=== PATIENT | male | born 1945 | race Caucasian/White ===

== ENCOUNTER 2017-06-25 05:02 | Inpatient (IN) | payer OTHER ==
[~2017-06-25] VITALS: Ht 172.7 cm; Wt 69.4 kg
[2017-06-25] VITALS (70 sets, daily range): BP systolic 63–180; BP diastolic 38–102
[2017-06-25] MEDS ORDERED: FUROSEMIDE 40MG/4ML VIAL IV STA (05:09)
[2017-06-25] MEDS ORDERED: NITROGLYCERIN OINT 1GM/INCH UDPKT TD STA (05:09)
[2017-06-25] MEDS ORDERED: ONDANSETRON HCL 4MG/2ML VIAL IV STA (05:09)
[2017-06-25] MEDS ORDERED: ALLO300T2 PO (05:15)
[2017-06-25] MEDS ORDERED: ATEN100T PO (05:16)
[2017-06-25] MEDS ORDERED: LANS30CA55 PO (05:16)
[2017-06-25] MEDS ORDERED: GLIM4TAB2 PO (05:16)
[2017-06-25] MEDS ORDERED: METF10002 PO (05:17)
[2017-06-25] MEDS ORDERED: MIR25 PO (05:18)
[2017-06-25] MEDS ORDERED: SITA100T11 PO (05:18)
[2017-06-25] MEDS ORDERED: IMOD GT (05:19)
[2017-06-25] MEDS ORDERED: VALS1TAB74 PO (05:19)
[2017-06-25] MEDS ORDERED: LANTUSUD SUBCUT (05:21)
[2017-06-25] MEDS ORDERED: VITA400T9 PO (05:21)
[2017-06-25] MEDS ORDERED: SUCCINYLCHOLINE CHLORIDE 200MG/10ML VIAL IV ONE ×2 (05:45→06:00)
[2017-06-25] MEDS ORDERED: ETOMIDATE 2MG/ML 10ML VIAL IV ONE ×2 (05:45→06:00)
[2017-06-25] MEDS ORDERED: PROPOFOL 10MG/ML 100ML 100 ML IV ONE (05:45)
[2017-06-25 05:47] LABS: HEMOGLOBIN. 12.7 g/dL (14.0-18.0); MEAN CORPUSCULAR VOLUME 101.8 fL (80.0-94.0); MEAN PLATELET VOLUME 10.7 fl (7.4-10.4); PLATELET 225 x1000/uL (130-400); RED BLOOD CELL COUNT 3.74 mill/uL (4.7-6.1); RED CELL DISTRIBUTION WIDTH 16.3 % (11.6-14.6)
[2017-06-25 05:52] LABS: INR 1.2; PROTHROMBIN TIME 12.5 sec (9.4-11.6)
[2017-06-25 06:00] LABS: CARBON DIOXIDE 15 mEq/L (21-32); CHLORIDE 101 mEq/L (98-107); TROPONIN I 0.02 ng/mL (0.00-0.04)
[2017-06-25] MEDS ORDERED: PIPERACILLIN/TAZ 3.375G PREMIX 50 ML IV ONE (06:00)
[2017-06-25] MEDS ORDERED: SODIUM CHLORIDE 0.9% 1000ML BAG (SEPSIS BOLUS) IV ONE (06:00)
[2017-06-25] MEDS ORDERED: VANCOMYCIN 1 G PREMIX 200 ML IV ONE (06:00)
[2017-06-25 08:34] LABS: BG BASE EXCESS -16.4 mmol/L (-2.0-2.0); BG CARBOXYHEMOGLOBIN 0.3 % (0.5-1.5); BG DEOXYHEMOGLOBIN 5.6 % (0.0-5.0); BG HCO3 ACT 11.5 mmol/L (22.0-26.0); BG METHEMOGLOBIN 0.1 % (0.0-1.5); BG OXYGEN SATURATION 94.4 % (92.0-98.5); BG PCO2 34.3 mmHg (35.0-45.0); BG PH 7.142 (7.350-7.450); BG PO2 84.6 mmHg (75.0-100.0); BG SAMPLE SITE RIGHT BRACHIAL; BG TIDAL VOLUME(mL) 500 mL; BG TOTAL HEMOGLOBIN 11.4 g/dL (12.0-18.0); BG VENT MODE VENT - A/C; BG VENT RATE 14 set
[2017-06-25] MEDS ORDERED: MORPHINE SULFATE 10 MG/ML CPJ IV PRN (09:00)
[2017-06-25] MEDS ORDERED: CLONIDINE 0.1MG TABLET PO PRN (09:00)
[2017-06-25] MEDS ORDERED: NA PHOS,M-B/NA PHOS,DI-BA ENEMA 118ML PR PRN (09:00)
[2017-06-25] MEDS ORDERED: DIPHENHYDRAMINE 50MG/ML VIAL IV PRN (09:00)
[2017-06-25] MEDS ORDERED: IPRATROPIUM/ALBUTEROL 0.5-3(2.5)MG/3ML NEB INH PRN (09:00)
[2017-06-25] MEDS ORDERED: SODIUM CHLORIDE 0.9% 1,000 ML IV ONE (09:00)
[2017-06-25] MEDS ORDERED: GUAIFENESIN 200MG/10ML SUGAR FREE UDC PO PRN (09:00)
[2017-06-25] MEDS ORDERED: ACETAMINOPHEN 325MG TABLET PO PRN (09:00)
[2017-06-25] MEDS ORDERED: MAGNESIUM/ALUMINUM HYDROXIDE/SIMETHICONE 30ML UDC PO PRN (09:00)
[2017-06-25] MEDS ORDERED: ONDANSETRON HCL 4MG/2ML VIAL IV PRN (09:00)
[2017-06-25] MEDS ORDERED: DEXTROSE 50% WATER 50ML SYRINGE IV PRN (09:00)
[2017-06-25] MEDS ORDERED: DOCUSATE SODIUM 100MG CAPSULE PO PRN (09:00)
[2017-06-25] MEDS ORDERED: SODIUM BICARBONATE 8.4% 1 MEQ/ML 50ML SYR IV NR ×2 (09:15→14:30)
[2017-06-25] MEDS ORDERED: SODIUM CHLORIDE 0.9% 500 ML IV NR (09:30)
[2017-06-25] MEDS ORDERED: NOREPINEPHRINE 4 MG in DEXT 5% WATER 246 ML IV PRN (10:00)
[2017-06-25 10:48] LABS: GLUCOSE URINE NEGATIVE (NEGATIVE); KETONES URINE NEGATIVE (NEGATIVE); LEUKOCYTE ESTERASE URINE NEGATIVE (NEGATIVE); NITRITE URINE NEGATIVE (NEGATIVE); OCCULT BLOOD URINE 2+ (NEGATIVE); PH URINE 5.5 (4.5-8.0); PROTEIN URINE 2+ (NEGATIVE); SPECIFIC GRAVITY URINE 1.017 (1.005-1.030); UROBILINOGEN URINE 0.2 E.U./dL (0.2-1.0)
[2017-06-25 10:52] LABS: CLARITY URINE CLEAR (CLEAR); COLOR URINE YELLOW (YELLOW)
[2017-06-25] MEDS ORDERED: VANCOMYCIN 1 G PREMIX 200 ML IV NR (11:00)
[2017-06-25] MEDS ORDERED: LEVOFLOXACIN 750MG PREMIX 150 ML IV NR (11:00)
[2017-06-25 11:41] LABS: T4 FREE 1.29 ng/dL (0.76-1.46)
[2017-06-25] MEDS: IPRATROPIUM/ALBUTEROL 0.5-3(2.5)MG/3ML NEB HHN SCH ×2 (11:48→21:02)
[2017-06-25] MEDS: ENOXAPARIN 40MG/0.4ML SYR SUBCUT SCH (11:52)
[2017-06-25] MEDS: PANTOPRAZOLE SODIUM 40 MG/VIAL IV SCH (11:52)
[2017-06-25] MEDS: ASPIRIN 325MG EC TABLET PO SCH (11:53)
[2017-06-25] MEDS: ASCORBIC ACID 500 MG TABLET PO SCH ×2 (11:53→21:15)
[2017-06-25] MEDS: PROPOFOL 10MG/ML 100ML 100 ML IV PRN ×2 (11:54→21:17)
[2017-06-25] MEDS: PIPERACILLIN/TAZ 3.375G PREMIX 50 ML IV SCH ×3 (11:54→23:48)
[2017-06-25] MEDS: DEXT 5%/0.9% NACL 1,000 ML IV SCH ×2 (12:00→17:26)
[2017-06-25] MEDS ORDERED: IPRATROPIUM/ALBUTEROL 0.5-3(2.5)MG/3ML NEB HHN SCH (12:00)
[2017-06-25 12:12] LABS: *AMPHETAMINES SCREEN URINE NEGATIVE (NEGATIVE); *BARBITURATES SCREEN URINE NEGATIVE (NEGATIVE); *BENZODIAZEPINES SCREEN URINE NEGATIVE (NEGATIVE); *COCAINE SCREEN URINE NEGATIVE (NEGATIVE); CANNABINOID URINE SCREEN NEGATIVE (NEGATIVE); METHADONE URINE SCREEN NEGATIVE (NEGATIVE); OPIATES URINE SCREEN NEGATIVE (NEGATIVE); PHENCYCLIDINE URINE SCREEN NEGATIVE (NEGATIVE)
[2017-06-25 12:18] LABS: FOLIC ACID (FOLATE) SERUM 9.1 ng/mL (>5.38)
[2017-06-25] MEDS: ALBUMIN HUMAN 25GM/100ML (25%) IV SCH ×2 (12:37→20:10)
[2017-06-25 12:51] LABS: HEPATITIS B CORE AB IGM NEGATIVE
[2017-06-25 12:52] LABS: HEPATITIS A AB IGM NEGATIVE (NEGATIVE)
[2017-06-25] MEDS: INSULIN LISPRO 100 UNITS/ML SUBCUT SCH ×3 (12:58→21:50)
[2017-06-25] MEDS: BLOOD SUGAR DIAGNOSTIC STRIP TEST SCH ×3 (12:59→21:00)
[2017-06-25 13:17] LABS: HEPATITIS B SURFACE ANTIGEN NEGATIVE
[2017-06-25] MEDS ORDERED: NOREPINEPHRINE 8 MG in DEXT 5% WATER 242 ML IV PRN (14:00)
[2017-06-25 14:06] LABS: BG BASE EXCESS -13.7 mmol/L (-2.0-2.0); BG CARBOXYHEMOGLOBIN 0.3 % (0.5-1.5); BG DEOXYHEMOGLOBIN 7.7 % (0.0-5.0); BG FRACTION INSPIRED OXYGEN 55; BG HCO3 ACT 13.6 mmol/L (22.0-26.0); BG METHEMOGLOBIN 0.1 % (0.0-1.5); BG OXYGEN SATURATION 92.3 % (92.0-98.5); BG OXYHEMOGLOBIN 91.9 % (94.0-97.0); BG PCO2 36.6 mmHg (35.0-45.0); BG PH 7.188 (7.350-7.450); BG PO2 72.8 mmHg (75.0-100.0); BG SAMPLE SITE LEFT RADIAL; BG TIDAL VOLUME(mL) 500 mL; BG TOTAL HEMOGLOBIN 10.6 g/dL (12.0-18.0); BG VENT MODE VENT - A/C; BG VENT RATE 20 set
[2017-06-25] MEDS ORDERED: SODIUM CHLORIDE 0.9% 10ML VIAL ONE (14:40)
[2017-06-25 14:53] LABS: CREATINE KINASE MB FRACTION 7.9 ng/mL (0.5-3.6); TROPONIN I 0.22 ng/mL (0.00-0.04)
[2017-06-25] MEDS: PHENYLEPHRINE 40 MG in DEXT 5% WATER 246 ML IV PRN ×2 (17:02→23:47)
[2017-06-25 17:04] LABS: BG BASE EXCESS -9.2 mmol/L (-2.0-2.0); BG CARBOXYHEMOGLOBIN 0.3 % (0.5-1.5); BG DEOXYHEMOGLOBIN 4.8 % (0.0-5.0); BG HCO3 ACT 16.4 mmol/L (22.0-26.0); BG METHEMOGLOBIN 0.3 % (0.0-1.5); BG OXYGEN SATURATION 95.2 % (92.0-98.5); BG OXYHEMOGLOBIN 94.6 % (94.0-97.0); BG PCO2 34.5 mmHg (35.0-45.0); BG PH 7.295 (7.350-7.450); BG PO2 78.9 mmHg (75.0-100.0); BG SAMPLE SITE RIGHT BRACHIAL; BG TIDAL VOLUME(mL) 500 mL; BG TOTAL HEMOGLOBIN 11.3 g/dL (12.0-18.0); BG VENT MODE VENT - A/C; BG VENT RATE 24 set
[2017-06-25] MEDS: SODIUM BICARBONATE 150 MEQ in DEXTROSE 5% WATER 1,000 ML IV SCH (19:35)
[2017-06-25] MEDS: ALLOPURINOL 100 MG TABLET PO SCH (21:15)
[2017-06-25] MEDS: ACETAMINOPHEN 650MG/20.3ML UDC PO PRN (21:49)
[2017-06-25 23:19] LABS: CREATINE KINASE MB FRACTION 4.1 ng/mL (0.5-3.6); TROPONIN I 0.3 ng/mL (0.00-0.04)
[2017-06-26] VITALS (95 sets, daily range): BP systolic 61–141; BP diastolic 41–81
[2017-06-26] MEDS: IPRATROPIUM/ALBUTEROL 0.5-3(2.5)MG/3ML NEB HHN SCH ×5 (00:35→20:07)
[2017-06-26] MEDS: ALBUMIN HUMAN 25GM/100ML (25%) IV SCH (03:49)
[2017-06-26] MEDS: DEXT 5%/0.9% NACL 1,000 ML IV SCH ×2 (03:50→15:00)
[2017-06-26] MEDS: PIPERACILLIN/TAZ 3.375G PREMIX 50 ML IV SCH ×4 (05:57→23:44)
[2017-06-26 05:58] LABS: CARBON DIOXIDE 19 mEq/L (21-32); CHLORIDE 101 mEq/L (98-107)
[2017-06-26] MEDS: PHENYLEPHRINE 40 MG in DEXT 5% WATER 246 ML IV PRN ×4 (05:58→19:58)
[2017-06-26 06:05] LABS: TROPONIN I 0.11 ng/mL (0.00-0.04)
[2017-06-26] MEDS: SODIUM BICARBONATE 150 MEQ in DEXTROSE 5% WATER 1,000 ML IV SCH (06:37)
[2017-06-26 07:31] LABS: HEMATOCRIT. 26.3 % (42.0-52.0); MEAN CORPUSCULAR HEMOGLOBIN 34.1 pg (28.0-32.0); MEAN CORPUSCULAR VOLUME 99.9 fL (80.0-94.0); MEAN PLATELET VOLUME 10.3 fl (7.4-10.4); PLATELET 98 x1000/uL (130-400); RED BLOOD CELL COUNT 2.63 mill/uL (4.7-6.1); RED CELL DISTRIBUTION WIDTH 16.2 % (11.6-14.6)
[2017-06-26] MEDS: PROPOFOL 10MG/ML 100ML 100 ML IV PRN (07:44)
[2017-06-26] MEDS ORDERED: VANCOMYCIN 1 G PREMIX 200 ML IV SCH (08:00)
[2017-06-26] MEDS ORDERED: MAGNESIUM 4 G PREMIX 100 ML IV NR (08:00)
[2017-06-26 08:17] LABS: BG BASE EXCESS -5.1 mmol/L (-2.0-2.0); BG CARBOXYHEMOGLOBIN 0.3 % (0.5-1.5); BG DEOXYHEMOGLOBIN 1.6 % (0.0-5.0); BG FRACTION INSPIRED OXYGEN 65; BG HCO3 ACT 18.9 mmol/L (22.0-26.0); BG METHEMOGLOBIN 0.3 % (0.0-1.5); BG OXYGEN SATURATION 98.4 % (92.0-98.5); BG OXYHEMOGLOBIN 97.8 % (94.0-97.0); BG PCO2 31.2 mmHg (35.0-45.0); BG PO2 117.7 mmHg (75.0-100.0); BG SAMPLE SITE RIGHT BRACHIAL; BG TIDAL VOLUME(mL) 500 mL; BG TOTAL HEMOGLOBIN 9.5 g/dL (12.0-18.0); BG VENT MODE VENT - A/C; BG VENT RATE 24 set
[2017-06-26] MEDS: BLOOD SUGAR DIAGNOSTIC STRIP TEST SCH ×4 (08:27→20:55)
[2017-06-26] MEDS: ALLOPURINOL 100 MG TABLET PO SCH (08:34)
[2017-06-26] MEDS: PANTOPRAZOLE SODIUM 40 MG/VIAL IV SCH ×2 (08:34→20:54)
[2017-06-26] MEDS: ASCORBIC ACID 500 MG TABLET PO SCH ×2 (08:34→20:55)
[2017-06-26 08:46] LABS: PLATELET ESTIMATE SLIGHTLY DECREASED
[2017-06-26] MEDS: ENOXAPARIN 40MG/0.4ML SYR SUBCUT SCH ×2 (09:00→10:18)
[2017-06-26] MEDS: ASPIRIN 325MG EC TABLET PO SCH ×2 (09:00→10:18)
[2017-06-26] MEDS: INSULIN LISPRO 100 UNITS/ML SUBCUT SCH ×4 (09:23→20:55)
[2017-06-26] MEDS ORDERED: LACTULOSE 20G/30ML UDC PO NR (09:30)
[2017-06-26] MEDS ORDERED: DIATR MEGLU/DIATRIZOATE SOLN 30ML PO NR (09:30)
[2017-06-26] MEDS: FENTANYL CITRATE/PF 500 MCG in SODIUM CHLORIDE 0.9% 40 ML IV PRN ×2 (11:02→23:16)
[2017-06-26] MEDS ORDERED: PIPERACILLIN/TAZ 3.375G PREMIX 50 ML IV SCH (12:00)
[2017-06-26] MEDS ORDERED: POTASSIUM CHLORIDE 20MEQ TABLET SR PO NR (12:16)
[2017-06-26 12:23] LABS: BG BASE EXCESS -3.9 mmol/L (-2.0-2.0); BG CARBOXYHEMOGLOBIN 0.3 % (0.5-1.5); BG DEOXYHEMOGLOBIN 4.4 % (0.0-5.0); BG FRACTION INSPIRED OXYGEN 65; BG HCO3 ACT 19.8 mmol/L (22.0-26.0); BG METHEMOGLOBIN 0.1 % (0.0-1.5); BG OXYGEN SATURATION 95.6 % (92.0-98.5); BG OXYHEMOGLOBIN 95.2 % (94.0-97.0); BG PCO2 31.1 mmHg (35.0-45.0); BG PH 7.422 (7.350-7.450); BG PO2 73.5 mmHg (75.0-100.0); BG SAMPLE SITE RIGHT RADIAL; BG TIDAL VOLUME(mL) 500 mL; BG TOTAL HEMOGLOBIN 9.7 g/dL (12.0-18.0); BG VENT MODE VENT - A/C; BG VENT RATE 24 set
[2017-06-26] MEDS ORDERED: NOREPINEPHRINE 16 MG in DEXT 5% WATER 234 ML IV PRN (12:45)
[2017-06-26] MEDS ORDERED: POTASSIUM CHLORIDE 20MEQ/PACKET PO NR (14:00)
[2017-06-26 15:05] LABS: BG BASE EXCESS -4.9 mmol/L (-2.0-2.0); BG CARBOXYHEMOGLOBIN 0.3 % (0.5-1.5); BG DEOXYHEMOGLOBIN 6.9 % (0.0-5.0); BG FRACTION INSPIRED OXYGEN 65; BG HCO3 ACT 19.8 mmol/L (22.0-26.0); BG METHEMOGLOBIN 0.2 % (0.0-1.5); BG OXYGEN SATURATION 93.1 % (92.0-98.5); BG OXYHEMOGLOBIN 92.6 % (94.0-97.0); BG PCO2 35.5 mmHg (35.0-45.0); BG PH 7.365 (7.350-7.450); BG PO2 66.4 mmHg (75.0-100.0); BG SAMPLE SITE RIGHT BRACHIAL; BG TIDAL VOLUME(mL) 500 mL; BG TOTAL HEMOGLOBIN 11.7 g/dL (12.0-18.0); BG VENT MODE VENT - A/C; BG VENT RATE 24 set
[2017-06-26] MEDS ORDERED: MIDAZOLAM HCL 50 MG in DEXTROSE 5% WATER 40 ML IV PRN (20:00)
[2017-06-27] VITALS (99 sets, daily range): BP systolic 65–159; BP diastolic 41–88
[2017-06-27] MEDS ORDERED: VANCOMYCIN 1250MG in DEXTROSE 5% WATER 250ML IV SCH ×2
[2017-06-27] MEDS: PHENYLEPHRINE 40 MG in DEXT 5% WATER 246 ML IV PRN ×5 (00:02→16:45)
[2017-06-27] MEDS: DEXT 5%/0.9% NACL 1,000 ML IV SCH ×3 (00:25→13:11)
[2017-06-27] MEDS: VANCOMYCIN 1,250 MG in DEXT 5% WATER 250 ML IV SCH ×2 (00:25→17:02)
[2017-06-27] MEDS: LORAZEPAM 2MG/ML CPJ IV PRN (00:36)
[2017-06-27] MEDS: FENTANYL CITRATE/PF 500 MCG in SODIUM CHLORIDE 0.9% 40 ML IV PRN ×3 (00:59→19:33)
[2017-06-27] MEDS: IPRATROPIUM/ALBUTEROL 0.5-3(2.5)MG/3ML NEB HHN SCH ×5 (04:19→20:07)
[2017-06-27 04:59] LABS: HEMATOCRIT. 31.6 % (42.0-52.0); HEMOGLOBIN. 10.6 g/dL (14.0-18.0); MEAN CORPUSCULAR HEMOGLOBIN 33.2 pg (28.0-32.0); MEAN CORPUSCULAR VOLUME 98.7 fL (80.0-94.0); MEAN PLATELET VOLUME 10.9 fl (7.4-10.4); PLATELET 166 x1000/uL (130-400); RED BLOOD CELL COUNT 3.21 mill/uL (4.7-6.1); RED CELL DISTRIBUTION WIDTH 16.3 % (11.6-14.6)
[2017-06-27] MEDS: PIPERACILLIN/TAZ 3.375G PREMIX 50 ML IV SCH ×3 (05:02→17:01)
[2017-06-27 05:17] LABS: CARBON DIOXIDE 22 mEq/L (21-32); CHLORIDE 99 mEq/L (98-107); PHOSPHORUS 1.5 mg/dL (2.5-4.9)
[2017-06-27 08:21] LABS: BG BASE EXCESS -5.6 mmol/L (-2.0-2.0); BG CARBOXYHEMOGLOBIN 0.3 % (0.5-1.5); BG DEOXYHEMOGLOBIN 4.3 % (0.0-5.0); BG FRACTION INSPIRED OXYGEN 65; BG HCO3 ACT 19.2 mmol/L (22.0-26.0); BG METHEMOGLOBIN 0.2 % (0.0-1.5); BG OXYGEN SATURATION 95.7 % (92.0-98.5); BG OXYHEMOGLOBIN 95.2 % (94.0-97.0); BG PCO2 34.8 mmHg (35.0-45.0); BG PH 7.359 (7.350-7.450); BG PO2 78.5 mmHg (75.0-100.0); BG SAMPLE SITE LEFT BRACHIAL; BG TIDAL VOLUME(mL) 500 mL; BG TOTAL HEMOGLOBIN 11.2 g/dL (12.0-18.0); BG VENT MODE VENT - A/C; BG VENT RATE 24 set
[2017-06-27] MEDS: BLOOD SUGAR DIAGNOSTIC STRIP TEST SCH ×4 (08:41→20:50)
[2017-06-27] MEDS: ALLOPURINOL 100 MG TABLET PO SCH (08:50)
[2017-06-27] MEDS: PANTOPRAZOLE SODIUM 40 MG/VIAL IV SCH ×2 (08:50→20:12)
[2017-06-27] MEDS: ASCORBIC ACID 500 MG TABLET PO SCH ×2 (08:50→20:12)
[2017-06-27] MEDS ORDERED: LEVOFLOXACIN 500MG PREMIX 100 ML IV SCH (09:00)
[2017-06-27] MEDS: INSULIN LISPRO 100 UNITS/ML SUBCUT SCH ×4 (09:08→20:51)
[2017-06-27 09:50] LABS: NUCLEATED RED BLOOD CELLS 4 /100 WBC; PLATELET ESTIMATE NORMAL
[2017-06-27] MEDS ORDERED: POTASSIUM PHOS,M-BASIC-D-BASIC 15 MMOL in DEXT 5% WATER 245 ML IV SCH (11:00)
[2017-06-27] MEDS: ACETAMINOPHEN 650MG/20.3ML UDC PO PRN (13:29)
[2017-06-27] MEDS: INSULIN DETEMIR UD 100 UNITS/ML SYR SUBCUT SCH ×2 (16:44→22:58)
[2017-06-27] MEDS: PHENYLEPHRINE 80 MG in DEXT 5% WATER 492 ML IV PRN (20:43)
[2017-06-28] VITALS (109 sets, daily range): BP systolic 73–147; BP diastolic 42–119
[2017-06-28] MEDS: IPRATROPIUM/ALBUTEROL 0.5-3(2.5)MG/3ML NEB HHN SCH ×6 (00:18→19:57)
[2017-06-28] MEDS: PIPERACILLIN/TAZ 3.375G PREMIX 50 ML IV SCH ×5 (00:24→23:41)
[2017-06-28] MEDS: FENTANYL CITRATE/PF 500 MCG in SODIUM CHLORIDE 0.9% 40 ML IV PRN (01:00)
[2017-06-28] MEDS: PHENYLEPHRINE 80 MG in DEXT 5% WATER 492 ML IV PRN ×2 (04:58→14:19)
[2017-06-28] MEDS: BLOOD SUGAR DIAGNOSTIC STRIP TEST SCH ×4 (05:35→23:29)
[2017-06-28] MEDS: DEXT 5%/0.9% NACL 1,000 ML IV SCH ×2 (05:44→16:37)
[2017-06-28] MEDS: INSULIN LISPRO 100 UNITS/ML SUBCUT SCH ×4 (05:48→23:41)
[2017-06-28 07:41] LABS: BG BASE EXCESS -6.3 mmol/L (-2.0-2.0); BG CARBOXYHEMOGLOBIN 0.3 % (0.5-1.5); BG DEOXYHEMOGLOBIN 4.1 % (0.0-5.0); BG HCO3 ACT 19.1 mmol/L (22.0-26.0); BG METHEMOGLOBIN 0.3 % (0.0-1.5); BG OXYGEN SATURATION 95.9 % (92.0-98.5); BG OXYHEMOGLOBIN 95.3 % (94.0-97.0); BG PCO2 37.7 mmHg (35.0-45.0); BG PH 7.323 (7.350-7.450); BG PO2 82.3 mmHg (75.0-100.0); BG SAMPLE SITE RIGHT RADIAL; BG TIDAL VOLUME(mL) 500 mL; BG TOTAL HEMOGLOBIN 10.6 g/dL (12.0-18.0); BG VENT MODE VENT - A/C; BG VENT RATE 24 set
[2017-06-28] MEDS: ALLOPURINOL 100 MG TABLET PO SCH (08:11)
[2017-06-28] MEDS: ASCORBIC ACID 500 MG TABLET PO SCH ×2 (08:11→20:24)
[2017-06-28] MEDS: PANTOPRAZOLE SODIUM 40 MG/VIAL IV SCH ×2 (08:11→20:24)
[2017-06-28] MEDS ORDERED: AMMONIA INHALATION 1EA INH NR (08:45)
[2017-06-28] MEDS ORDERED: MINERAL OIL ENEMA 133ML PR NR (08:45)
[2017-06-28] MEDS ORDERED: LACTULOSE 20G/30ML UDC PO NR (08:45)
[2017-06-28 09:03] LABS: HEMATOCRIT 29.4 % (42.0-52.0); HEMOGLOBIN 9.9 g/dL (14.0-18.0); MEAN CORPUSCULAR HEMOGLOBIN 33.1 pg (28.0-32.0); MEAN CORPUSCULAR VOLUME 98.5 fL (80.0-94.0); PLATELET 138 x1000/uL (130-400); RED BLOOD CELL COUNT 2.98 mill/uL (4.7-6.1); RED CELL DISTRIBUTION WIDTH 16.5 % (11.6-14.6)
[2017-06-28 09:21] LABS: AMMONIA 45 uMol/L (<32)
[2017-06-28] MEDS: FENTANYL CITRATE/PF 1,000 MCG in SODIUM CHLORIDE 0.9% 80 ML IV PRN (09:31)
[2017-06-28 10:05] LABS: PHOSPHORUS 1.9 mg/dL (2.5-4.9)
[2017-06-28] MEDS: VANCOMYCIN 1,250 MG in DEXT 5% WATER 250 ML IV SCH (11:03)
[2017-06-28] MEDS ORDERED: SODIUM PHOS,M-BASIC-D-BASIC 15 MM in DEXT 5% WATER 245 ML IV ONE (12:00)
[2017-06-28] MEDS ORDERED: ZOSYN XX SCH (12:30)
[2017-06-28] MEDS ORDERED: VANCOMYCIN 1500MG in DEXTROSE 5% WATER 250ML IV SCH (13:00)
[2017-06-28] MEDS ORDERED: BISACODYL 10MG SUPP PR PRN (15:45)
[2017-06-28] MEDS ORDERED: SORBITOL 70% SOLN 30ML PO NR (16:30)
[2017-06-28] MEDS: INSULIN DETEMIR UD 100 UNITS/ML SYR SUBCUT SCH (21:23)
[2017-06-28] MEDS ORDERED: LACTULOSE 20G/30ML UDC PO SCH (22:00)
[2017-06-29] VITALS (93 sets, daily range): BP systolic 86–173; BP diastolic 41–106
[2017-06-29] MEDS: IPRATROPIUM/ALBUTEROL 0.5-3(2.5)MG/3ML NEB HHN SCH ×7 (01:03→22:30)
[2017-06-29] MEDS: PHENYLEPHRINE 80 MG in DEXT 5% WATER 492 ML IV PRN ×2 (01:40→13:47)
[2017-06-29] MEDS: DEXT 5%/0.9% NACL 1,000 ML IV SCH ×2 (02:34→13:40)
[2017-06-29] MEDS: PIPERACILLIN/TAZ 3.375G PREMIX 50 ML IV SCH (05:15)
[2017-06-29] MEDS: BLOOD SUGAR DIAGNOSTIC STRIP TEST SCH ×3 (05:26→18:44)
[2017-06-29] MEDS: INSULIN LISPRO 100 UNITS/ML SUBCUT SCH ×3 (05:36→18:49)
[2017-06-29 06:14] LABS: HEMATOCRIT. 29.9 % (42.0-52.0); MEAN CORPUSCULAR HEMOGLOBIN 32.9 pg (28.0-32.0); MEAN CORPUSCULAR VOLUME 98.3 fL (80.0-94.0); MEAN PLATELET VOLUME 10.5 fl (7.4-10.4); PLATELET 148 x1000/uL (130-400); RED BLOOD CELL COUNT 3.04 mill/uL (4.7-6.1); RED CELL DISTRIBUTION WIDTH 16.6 % (11.6-14.6)
[2017-06-29 06:26] LABS: AMMONIA 65 uMol/L (<32)
[2017-06-29 06:50] LABS: PHOSPHORUS 3.3 mg/dL (2.5-4.9)
[2017-06-29 08:01] LABS: BG BASE EXCESS -4.9 mmol/L (-2.0-2.0); BG CARBOXYHEMOGLOBIN 0.2 % (0.5-1.5); BG DEOXYHEMOGLOBIN 1.5 % (0.0-5.0); BG FRACTION INSPIRED OXYGEN 75; BG HCO3 ACT 19.3 mmol/L (22.0-26.0); BG METHEMOGLOBIN 0.3 % (0.0-1.5); BG OXYGEN SATURATION 98.5 % (92.0-98.5); BG PCO2 32.7 mmHg (35.0-45.0); BG PH 7.389 (7.350-7.450); BG PO2 134.2 mmHg (75.0-100.0); BG SAMPLE SITE RIGHT BRACHIAL; BG TIDAL VOLUME(mL) 500 mL; BG TOTAL HEMOGLOBIN 10.2 g/dL (12.0-18.0); BG VENT MODE VENT - A/C; BG VENT RATE 24 set
[2017-06-29 08:44] LABS: PLATELET ESTIMATE NORMAL
[2017-06-29] MEDS: ASCORBIC ACID 500 MG TABLET PO SCH ×2 (09:17→20:25)
[2017-06-29] MEDS: ALLOPURINOL 100 MG TABLET PO SCH (09:18)
[2017-06-29] MEDS: PANTOPRAZOLE SODIUM 40 MG/VIAL IV SCH ×2 (09:18→20:25)
[2017-06-29] MEDS ORDERED: VANCOMYCIN 1 G PREMIX 200 ML IV SCH (13:00)
[2017-06-29] MEDS: METOCLOPRAMIDE HCL 10MG/2ML VIAL IV SCH ×2 (13:43→18:47)
[2017-06-29] MEDS: RIFAXIMIN 550 MG TABLET PO SCH ×2 (13:44→20:25)
[2017-06-29] MEDS: METRONIDAZOLE 500MG TABLET PO SCH ×2 (14:45→20:25)
[2017-06-29] MEDS: LACTULOSE 20G/30ML UDC PO SCH ×2 (14:46→22:03)
[2017-06-29] MEDS: LORAZEPAM 2MG/ML CPJ IV PRN ×2 (16:54→23:06)
[2017-06-29] MEDS: CEFAZOLIN 2,000 MG in DEXT 5% WATER 100 ML IV SCH (16:54)
[2017-06-29] MEDS: INSULIN DETEMIR UD 100 UNITS/ML SYR SUBCUT SCH (22:04)
[2017-06-30] VITALS (101 sets, daily range): BP systolic 83–162; BP diastolic 48–114
[2017-06-30] MEDS: METOCLOPRAMIDE HCL 10MG/2ML VIAL IV SCH ×5 (00:02→23:29)
[2017-06-30] MEDS: INSULIN LISPRO 100 UNITS/ML SUBCUT SCH ×5 (00:02→23:30)
[2017-06-30] MEDS: BLOOD SUGAR DIAGNOSTIC STRIP TEST SCH ×5 (00:03→23:29)
[2017-06-30] MEDS: IPRATROPIUM/ALBUTEROL 0.5-3(2.5)MG/3ML NEB HHN PRN (01:38)
[2017-06-30] MEDS: CEFAZOLIN 2,000 MG in DEXT 5% WATER 100 ML IV SCH ×2 (03:14→16:49)
[2017-06-30] MEDS: IPRATROPIUM/ALBUTEROL 0.5-3(2.5)MG/3ML NEB HHN SCH ×2 (03:59→08:33)
[2017-06-30] MEDS: LACTULOSE 20G/30ML UDC PO SCH ×3 (05:23→21:20)
[2017-06-30 05:41] LABS: AMMONIA 40 uMol/L (<32)
[2017-06-30 06:11] LABS: HEMATOCRIT. 27.9 % (42.0-52.0); HEMOGLOBIN. 9.4 g/dL (14.0-18.0); MEAN CORPUSCULAR HEMOGLOBIN 33.2 pg (28.0-32.0); MEAN CORPUSCULAR VOLUME 98.4 fL (80.0-94.0); MEAN PLATELET VOLUME 10.7 fl (7.4-10.4); PLATELET 125 x1000/uL (130-400); RED BLOOD CELL COUNT 2.83 mill/uL (4.7-6.1); RED CELL DISTRIBUTION WIDTH 16.5 % (11.6-14.6)
[2017-06-30 06:15] LABS: INR 1.2; PARTIAL THROMBOPLASTIN TIME 28.1 sec (23.4-31.0)
[2017-06-30] MEDS: PHENYLEPHRINE 80 MG in DEXT 5% WATER 492 ML IV PRN ×2 (06:15→19:25)
[2017-06-30] MEDS: FENTANYL CITRATE/PF 1,000 MCG in SODIUM CHLORIDE 0.9% 80 ML IV PRN ×3 (06:41→20:59)
[2017-06-30 07:00] LABS: CARBON DIOXIDE 19 mEq/L (21-32); CHLORIDE 104 mEq/L (98-107); PHOSPHORUS 2.7 mg/dL (2.5-4.9)
[2017-06-30 07:38] LABS: BG BASE EXCESS -10.3 mmol/L (-2.0-2.0); BG DEOXYHEMOGLOBIN 2.3 % (0.0-5.0); BG HCO3 ACT 13.7 mmol/L (22.0-26.0); BG METHEMOGLOBIN 0.2 % (0.0-1.5); BG OXYGEN SATURATION 97.7 % (92.0-98.5); BG OXYHEMOGLOBIN 97.5 % (94.0-97.0); BG PCO2 25.8 mmHg (35.0-45.0); BG PH 7.344 (7.350-7.450); BG SAMPLE SITE RIGHT BRACHIAL; BG TIDAL VOLUME(mL) 500 mL; BG TOTAL HEMOGLOBIN 12.4 g/dL (12.0-18.0); BG VENT MODE VENT - A/C; BG VENT RATE 20 set
[2017-06-30] MEDS ORDERED: LORAZEPAM 2MG/ML CPJ IV NR (08:37)
[2017-06-30 09:09] LABS: PLATELET ESTIMATE NORMAL
[2017-06-30] MEDS: MIDAZOLAM HCL 50 MG in DEXTROSE 5% WATER 40 ML IV PRN ×2 (09:13→16:56)
[2017-06-30] MEDS: ALLOPURINOL 100 MG TABLET PO SCH (10:07)
[2017-06-30] MEDS: RIFAXIMIN 550 MG TABLET PO SCH ×2 (10:07→21:20)
[2017-06-30] MEDS: METRONIDAZOLE 500MG TABLET PO SCH ×2 (10:07→21:20)
[2017-06-30] MEDS: PANTOPRAZOLE SODIUM 40 MG/VIAL IV SCH ×2 (10:07→21:20)
[2017-06-30] MEDS: ASCORBIC ACID 500 MG TABLET PO SCH ×2 (10:07→21:20)
[2017-06-30] MEDS: DEXT 5%/0.9% NACL 1,000 ML IV SCH (10:17)
[2017-06-30] MEDS ORDERED: SODIUM CHLORIDE 0.9% 500 ML IV NR (11:15)
[2017-06-30] MEDS: IPRATROPIUM BROMIDE (0.02%) 0.5MG/2.5ML NEB HHN SCH ×4 (12:13→23:50)
[2017-06-30] MEDS ORDERED: ALBUMIN HUMAN 25GM/100ML (25%) IV NR (14:15)
[2017-06-30] MEDS ORDERED: MIDODRINE HCL 5MG TABLET NG SCH (15:45)
[2017-06-30] MEDS: CITRIC ACID/SODIUM CITRATE SOLN 30ML UDC NG SCH ×2 (16:25→17:43)
[2017-06-30] MEDS: INSULIN DETEMIR UD 100 UNITS/ML SYR SUBCUT SCH (21:30)
[2017-07-01] VITALS (91 sets, daily range): BP systolic 80–140; BP diastolic 46–72
[2017-07-01] MEDS: MIDODRINE HCL 5MG TABLET NG SCH ×3 (01:07→16:17)
[2017-07-01] MEDS: MIDAZOLAM HCL 50 MG in DEXTROSE 5% WATER 40 ML IV PRN (02:27)
[2017-07-01] MEDS: CEFAZOLIN 2,000 MG in DEXT 5% WATER 100 ML IV SCH ×2 (03:04→16:16)
[2017-07-01] MEDS: IPRATROPIUM BROMIDE (0.02%) 0.5MG/2.5ML NEB HHN SCH ×5 (04:27→20:30)
[2017-07-01] MEDS: LACTULOSE 20G/30ML UDC PO SCH ×3 (05:12→21:38)
[2017-07-01] MEDS: METOCLOPRAMIDE HCL 10MG/2ML VIAL IV SCH ×3 (05:12→18:14)
[2017-07-01] MEDS: BLOOD SUGAR DIAGNOSTIC STRIP TEST SCH ×3 (05:12→18:13)
[2017-07-01] MEDS: PHENYLEPHRINE 80 MG in DEXT 5% WATER 492 ML IV PRN ×2 (05:13→14:57)
[2017-07-01] MEDS: INSULIN LISPRO 100 UNITS/ML SUBCUT SCH ×3 (05:13→18:16)
[2017-07-01] MEDS: FENTANYL CITRATE/PF 1,000 MCG in SODIUM CHLORIDE 0.9% 80 ML IV PRN (05:36)
[2017-07-01 06:31] LABS: HEMATOCRIT. 29.9 % (42.0-52.0); HEMOGLOBIN. 9.8 g/dL (14.0-18.0); MEAN CORPUSCULAR VOLUME 100.2 fL (80.0-94.0); MEAN PLATELET VOLUME 10.1 fl (7.4-10.4); PLATELET 124 x1000/uL (130-400); RED BLOOD CELL COUNT 2.99 mill/uL (4.7-6.1); RED CELL DISTRIBUTION WIDTH 16.6 % (11.6-14.6)
[2017-07-01 07:06] LABS: CARBON DIOXIDE 21 mEq/L (21-32); CHLORIDE 107 mEq/L (98-107)
[2017-07-01] MEDS ORDERED: FUROSEMIDE 40MG/4ML VIAL IVP SCH (08:30)
[2017-07-01] MEDS ORDERED: ALBUMIN HUMAN 25GM/100ML (25%) IV SCH (08:30)
[2017-07-01] MEDS: METRONIDAZOLE 500MG TABLET PO SCH ×2 (08:52→20:05)
[2017-07-01] MEDS: CITRIC ACID/SODIUM CITRATE SOLN 30ML UDC NG SCH ×3 (08:52→16:16)
[2017-07-01] MEDS: ALLOPURINOL 100 MG TABLET PO SCH (08:52)
[2017-07-01] MEDS: RIFAXIMIN 550 MG TABLET PO SCH ×2 (08:52→20:05)
[2017-07-01] MEDS: PANTOPRAZOLE SODIUM 40 MG/VIAL IV SCH ×2 (08:52→20:05)
[2017-07-01] MEDS: ASCORBIC ACID 500 MG TABLET PO SCH ×2 (08:52→20:05)
[2017-07-01] MEDS ORDERED: KCL 20MEQ/100ML PREMIX 100 ML IV SCH (09:30)
[2017-07-01 09:54] LABS: PLATELET ESTIMATE SLIGHTLY DECREASED
[2017-07-01] MEDS ORDERED: POTASSIUM PHOS,M-BASIC-D-BASIC 30 MMOL in SODIUM CHLORIDE 0.9% 500 ML IV SCH (10:00)
[2017-07-01 10:22] LABS: BG BASE EXCESS -4.9 mmol/L (-2.0-2.0); BG CARBOXYHEMOGLOBIN 0.3 % (0.5-1.5); BG DEOXYHEMOGLOBIN 3.9 % (0.0-5.0); BG FRACTION INSPIRED OXYGEN 60; BG HCO3 ACT 19.3 mmol/L (22.0-26.0); BG METHEMOGLOBIN 0.2 % (0.0-1.5); BG OXYGEN SATURATION 96.1 % (92.0-98.5); BG OXYHEMOGLOBIN 95.6 % (94.0-97.0); BG PCO2 32.1 mmHg (35.0-45.0); BG PH 7.396 (7.350-7.450); BG PO2 84.8 mmHg (75.0-100.0); BG SAMPLE SITE RIGHT RADIAL; BG TIDAL VOLUME(mL) 500 mL; BG TOTAL HEMOGLOBIN 9.8 g/dL (12.0-18.0); BG VENT MODE VENT - A/C; BG VENT RATE 20 set
[2017-07-01 13:00] LABS: AMMONIA 49 uMol/L (<32)
[2017-07-01 15:06] LABS: QFT MITOGEN VALUE 0.05 IU/mL (.); QFT TB AG VALUE 0.05 IU/mL (.); QFT TB GOLD Indeterminate (Negative)
[2017-07-01] MEDS ORDERED: LACTULOSE 20G/30ML UDC PO SCH (21:00)
[2017-07-01] MEDS: INSULIN DETEMIR UD 100 UNITS/ML SYR SUBCUT SCH (21:39)
[2017-07-02] VITALS (86 sets, daily range): BP systolic 88–126; BP diastolic 47–68
[2017-07-02] MEDS: IPRATROPIUM BROMIDE (0.02%) 0.5MG/2.5ML NEB HHN SCH ×6 (00:08→21:03)
[2017-07-02] MEDS: METOCLOPRAMIDE HCL 10MG/2ML VIAL IV SCH ×4 (00:10→17:05)
[2017-07-02] MEDS: MIDODRINE HCL 5MG TABLET NG SCH ×3 (00:21→17:06)
[2017-07-02] MEDS: INSULIN LISPRO 100 UNITS/ML SUBCUT SCH ×4 (00:21→17:07)
[2017-07-02] MEDS: CEFAZOLIN 2,000 MG in DEXT 5% WATER 100 ML IV SCH ×2 (03:49→16:14)
[2017-07-02] MEDS: BLOOD SUGAR DIAGNOSTIC STRIP TEST SCH ×4 (06:00→16:58)
[2017-07-02] MEDS: LACTULOSE 20G/30ML UDC PO SCH ×4 (06:14→20:10)
[2017-07-02 06:26] LABS: AMMONIA 38 uMol/L (<32)
[2017-07-02 06:39] LABS: CARBON DIOXIDE 21 mEq/L (21-32); CHLORIDE 108 mEq/L (98-107); PHOSPHORUS 2.3 mg/dL (2.5-4.9)
[2017-07-02] MEDS: PHENYLEPHRINE 80 MG in DEXT 5% WATER 492 ML IV PRN (06:50)
[2017-07-02 08:07] LABS: BG BASE EXCESS -2.8 mmol/L (-2.0-2.0); BG CARBOXYHEMOGLOBIN 0.3 % (0.5-1.5); BG DEOXYHEMOGLOBIN 3.2 % (0.0-5.0); BG FRACTION INSPIRED OXYGEN 55; BG METHEMOGLOBIN 0.4 % (0.0-1.5); BG OXYGEN SATURATION 96.8 % (92.0-98.5); BG OXYHEMOGLOBIN 96.1 % (94.0-97.0); BG PCO2 37.9 mmHg (35.0-45.0); BG PH 7.381 (7.350-7.450); BG PO2 90.8 mmHg (75.0-100.0); BG SAMPLE SITE RIGHT RADIAL; BG TIDAL VOLUME(mL) 500 mL; BG TOTAL HEMOGLOBIN 9.4 g/dL (12.0-18.0); BG VENT MODE VENT - A/C; BG VENT RATE 16 set
[2017-07-02 08:13] LABS: HEMOGLOBIN. 8.8 g/dL (14.0-18.0); MEAN CORPUSCULAR HEMOGLOBIN 32.4 pg (28.0-32.0); MEAN CORPUSCULAR VOLUME 99.4 fL (80.0-94.0); MEAN PLATELET VOLUME 10.5 fl (7.4-10.4); PLATELET 130 x1000/uL (130-400); RED BLOOD CELL COUNT 2.72 mill/uL (4.7-6.1); RED CELL DISTRIBUTION WIDTH 16.3 % (11.6-14.6)
[2017-07-02] MEDS: PANTOPRAZOLE SODIUM 40 MG/VIAL IV SCH ×2 (09:43→20:08)
[2017-07-02] MEDS: CITRIC ACID/SODIUM CITRATE SOLN 30ML UDC NG SCH ×3 (09:43→17:05)
[2017-07-02] MEDS: ALLOPURINOL 100 MG TABLET PO SCH (09:43)
[2017-07-02] MEDS: ASCORBIC ACID 500 MG TABLET PO SCH ×2 (09:43→20:09)
[2017-07-02 09:44] LABS: PLATELET ESTIMATE NORMAL
[2017-07-02] MEDS: METRONIDAZOLE 500MG TABLET PO SCH ×2 (09:44→20:09)
[2017-07-02] MEDS ORDERED: POTASSIUM PHOS,M-BASIC-D-BASIC 15 MMOL in DEXT 5% WATER 245 ML IV SCH (10:00)
[2017-07-02] MEDS ORDERED: FUROSEMIDE 40MG/4ML VIAL IVP SCH (10:00)
[2017-07-02] MEDS: HEPARIN 5000 UNITS/ML VIAL SUBCUT SCH ×2 (12:39→21:18)
[2017-07-02] MEDS: RIFAXIMIN 550 MG TABLET PO SCH (20:09)
[2017-07-02] MEDS: INSULIN DETEMIR UD 100 UNITS/ML SYR SUBCUT SCH (21:19)
[2017-07-03] VITALS (64 sets, daily range): BP systolic 85–159; BP diastolic 48–88
[2017-07-03] MEDS: MIDODRINE HCL 5MG TABLET NG SCH ×3 (00:01→16:26)
[2017-07-03] MEDS: IPRATROPIUM BROMIDE (0.02%) 0.5MG/2.5ML NEB HHN SCH ×3 (00:36→07:45)
[2017-07-03] MEDS: INSULIN LISPRO 100 UNITS/ML SUBCUT SCH ×5 (00:48→23:29)
[2017-07-03] MEDS: LACTULOSE 20G/30ML UDC PO SCH ×7 (03:33→23:27)
[2017-07-03] MEDS: CEFAZOLIN 2,000 MG in DEXT 5% WATER 100 ML IV SCH ×3 (03:33→23:28)
[2017-07-03] MEDS: BLOOD SUGAR DIAGNOSTIC STRIP TEST SCH ×5 (06:00→23:19)
[2017-07-03 06:13] LABS: HEMATOCRIT. 26.6 % (42.0-52.0); HEMOGLOBIN. 8.7 g/dL (14.0-18.0); MEAN CORPUSCULAR HEMOGLOBIN 33.3 pg (28.0-32.0); MEAN PLATELET VOLUME 11.4 fl (7.4-10.4); PLATELET 145 x1000/uL (130-400); RED BLOOD CELL COUNT 2.63 mill/uL (4.7-6.1); RED CELL DISTRIBUTION WIDTH 16.7 % (11.6-14.6)
[2017-07-03 06:24] LABS: AMMONIA 60 uMol/L (<32)
[2017-07-03] MEDS: METOCLOPRAMIDE HCL 10MG/2ML VIAL IV SCH ×5 (06:32→23:27)
[2017-07-03 07:04] LABS: PHOSPHORUS 1.8 mg/dL (2.5-4.9)
[2017-07-03] MEDS: CITRIC ACID/SODIUM CITRATE SOLN 30ML UDC NG SCH (08:18)
[2017-07-03] MEDS: RIFAXIMIN 550 MG TABLET PO SCH ×2 (08:19→20:26)
[2017-07-03] MEDS: HEPARIN 5000 UNITS/ML VIAL SUBCUT SCH ×2 (08:19→20:26)
[2017-07-03] MEDS: ASCORBIC ACID 500 MG TABLET PO SCH ×2 (08:20→20:26)
[2017-07-03] MEDS: PANTOPRAZOLE SODIUM 40 MG/VIAL IV SCH ×2 (08:20→20:26)
[2017-07-03] MEDS: ALLOPURINOL 100 MG TABLET PO SCH (08:20)
[2017-07-03] MEDS: METRONIDAZOLE 500MG TABLET PO SCH ×2 (08:20→20:26)
[2017-07-03 08:38] LABS: BG BASE EXCESS -0.7 mmol/L (-2.0-2.0); BG CARBOXYHEMOGLOBIN 0.2 % (0.5-1.5); BG DEOXYHEMOGLOBIN 3.4 % (0.0-5.0); BG FRACTION INSPIRED OXYGEN 45; BG HCO3 ACT 23.1 mmol/L (22.0-26.0); BG METHEMOGLOBIN 0.2 % (0.0-1.5); BG OXYGEN SATURATION 96.6 % (92.0-98.5); BG OXYHEMOGLOBIN 96.2 % (94.0-97.0); BG PCO2 34.4 mmHg (35.0-45.0); BG PH 7.444 (7.350-7.450); BG PO2 91.4 mmHg (75.0-100.0); BG SAMPLE SITE RIGHT RADIAL; BG TIDAL VOLUME(mL) 500 mL; BG TOTAL HEMOGLOBIN 10.2 g/dL (12.0-18.0); BG VENT MODE VENT - A/C; BG VENT RATE 12 set
[2017-07-03] MEDS ORDERED: ALBUMIN HUMAN 25GM/100ML (25%) IV NR (08:55)
[2017-07-03] MEDS ORDERED: FUROSEMIDE 40MG/4ML VIAL IVP NR (08:55)
[2017-07-03] MEDS ORDERED: POTASSIUM PHOS,M-BASIC-D-BASIC 20 MMOL in DEXT 5% WATER 243.3333 ML IV ONE (09:15)
[2017-07-03] MEDS ORDERED: POTASSIUM PHOS,M-BASIC-D-BASIC 15 MMOL in DEXT 5% WATER 245 ML IV NR (11:00)
[2017-07-03 11:06] LABS: PLATELET ESTIMATE NORMAL
[2017-07-03] MEDS: ACETAMINOPHEN 650MG/20.3ML UDC PO PRN (12:10)
[2017-07-03] MEDS: ACETYLCYSTEINE 200MG/ML 20% VIAL 4ML INH SCH ×2 (14:46→20:43)
[2017-07-03] MEDS: IPRATROPIUM/ALBUTEROL 0.5-3(2.5)MG/3ML NEB HHN SCH ×2 (14:46→20:36)
[2017-07-03] MEDS: INSULIN DETEMIR UD 100 UNITS/ML SYR SUBCUT SCH (22:10)
[2017-07-04] VITALS (49 sets, daily range): BP systolic 102–167; BP diastolic 61–93
[2017-07-04] MEDS: MORPHINE SULFATE 2 MG/ML CPJ (NOT FOR IM USE) IV PRN (00:03)
[2017-07-04] MEDS: MIDODRINE HCL 5MG TABLET NG SCH ×2 (00:58→09:35)
[2017-07-04] MEDS: ACETAMINOPHEN 650MG/20.3ML UDC PO PRN ×3 (01:22→18:16)
[2017-07-04] MEDS: LACTULOSE 20G/30ML UDC PO SCH ×4 (04:00→22:18)
[2017-07-04] MEDS: ACETYLCYSTEINE 200MG/ML 20% VIAL 4ML INH SCH ×3 (05:27→15:41)
[2017-07-04] MEDS: IPRATROPIUM/ALBUTEROL 0.5-3(2.5)MG/3ML NEB HHN SCH ×2 (05:28→08:35)
[2017-07-04 05:32] LABS: HEMATOCRIT. 26.1 % (42.0-52.0); HEMOGLOBIN. 8.5 g/dL (14.0-18.0); MEAN CORPUSCULAR HEMOGLOBIN 33.1 pg (28.0-32.0); MEAN PLATELET VOLUME 10.7 fl (7.4-10.4); PLATELET 169 x1000/uL (130-400); RED BLOOD CELL COUNT 2.58 mill/uL (4.7-6.1); RED CELL DISTRIBUTION WIDTH 17.1 % (11.6-14.6)
[2017-07-04] MEDS: BLOOD SUGAR DIAGNOSTIC STRIP TEST SCH ×3 (05:32→18:06)
[2017-07-04] MEDS: METOCLOPRAMIDE HCL 10MG/2ML VIAL IV SCH ×3 (05:40→18:16)
[2017-07-04] MEDS: INSULIN LISPRO 100 UNITS/ML SUBCUT SCH ×3 (05:42→18:17)
[2017-07-04 05:58] LABS: PHOSPHORUS 2.8 mg/dL (2.5-4.9)
[2017-07-04 06:02] LABS: AMMONIA 29 uMol/L (<32)
[2017-07-04 08:40] LABS: BG BASE EXCESS -1.3 mmol/L (-2.0-2.0); BG CARBOXYHEMOGLOBIN 0.3 % (0.5-1.5); BG DEOXYHEMOGLOBIN 3.9 % (0.0-5.0); BG FRACTION INSPIRED OXYGEN 35; BG HCO3 ACT 22.5 mmol/L (22.0-26.0); BG METHEMOGLOBIN 0.3 % (0.0-1.5); BG OXYGEN SATURATION 96.1 % (92.0-98.5); BG OXYHEMOGLOBIN 95.5 % (94.0-97.0); BG PCO2 33.9 mmHg (35.0-45.0); BG PO2 85.6 mmHg (75.0-100.0); BG SAMPLE SITE RIGHT RADIAL; BG TIDAL VOLUME(mL) 500 mL; BG TOTAL HEMOGLOBIN 9.4 g/dL (12.0-18.0); BG VENT MODE VENT - A/C; BG VENT RATE 12 set
[2017-07-04] MEDS: PANTOPRAZOLE SODIUM 40 MG/VIAL IV SCH ×2 (09:33→20:43)
[2017-07-04] MEDS: CEFAZOLIN 2,000 MG in DEXT 5% WATER 100 ML IV SCH ×2 (09:33→16:45)
[2017-07-04] MEDS: HEPARIN 5000 UNITS/ML VIAL SUBCUT SCH ×2 (09:34→20:43)
[2017-07-04] MEDS: ALLOPURINOL 100 MG TABLET PO SCH (09:34)
[2017-07-04] MEDS: ASCORBIC ACID 500 MG TABLET PO SCH ×2 (09:34→20:43)
[2017-07-04] MEDS: RIFAXIMIN 550 MG TABLET PO SCH ×2 (09:34→20:43)
[2017-07-04] MEDS: METRONIDAZOLE 500MG TABLET PO SCH ×2 (09:35→20:43)
[2017-07-04] MEDS: IPRATROPIUM/ALBUTEROL 0.5-3(2.5)MG/3ML NEB HHN PRN ×2 (12:31→15:36)
[2017-07-04] MEDS: FUROSEMIDE 40MG/4ML VIAL IVP SCH (13:33)
[2017-07-04] MEDS ORDERED: MIDODRINE HCL 5MG TABLET NG SCH (21:00)
[2017-07-04 22:15] LABS: PLATELET ESTIMATE NORMAL
[2017-07-04] MEDS: INSULIN DETEMIR UD 100 UNITS/ML SYR SUBCUT SCH (22:21)
[2017-07-05] VITALS (44 sets, daily range): BP systolic 61–154; BP diastolic 44–85
[2017-07-05] MEDS: BLOOD SUGAR DIAGNOSTIC STRIP TEST SCH ×5 (00:25→23:18)
[2017-07-05] MEDS: ACETYLCYSTEINE 200MG/ML 20% VIAL 4ML INH SCH ×2 (00:32→08:31)
[2017-07-05] MEDS: IPRATROPIUM/ALBUTEROL 0.5-3(2.5)MG/3ML NEB HHN SCH ×2 (00:32→08:31)
[2017-07-05] MEDS: CEFAZOLIN 2,000 MG in DEXT 5% WATER 100 ML IV SCH ×4 (00:35→23:31)
[2017-07-05] MEDS: INSULIN LISPRO 100 UNITS/ML SUBCUT SCH ×5 (00:37→23:32)
[2017-07-05] MEDS: METOCLOPRAMIDE HCL 10MG/2ML VIAL IV SCH ×5 (00:38→23:32)
[2017-07-05 05:20] LABS: HEMATOCRIT. 24.5 % (42.0-52.0); HEMOGLOBIN. 8.1 g/dL (14.0-18.0); MEAN CORPUSCULAR HEMOGLOBIN 33.3 pg (28.0-32.0); MEAN CORPUSCULAR VOLUME 101.3 fL (80.0-94.0); MEAN PLATELET VOLUME 10.7 fl (7.4-10.4); PLATELET 168 x1000/uL (130-400); RED BLOOD CELL COUNT 2.42 mill/uL (4.7-6.1); RED CELL DISTRIBUTION WIDTH 17.1 % (11.6-14.6)
[2017-07-05 05:39] LABS: CARBON DIOXIDE 25 mEq/L (21-32); CHLORIDE 115 mEq/L (98-107); PHOSPHORUS 1.6 mg/dL (2.5-4.9)
[2017-07-05 05:42] LABS: AMMONIA 32 uMol/L (<32)
[2017-07-05] MEDS: LACTULOSE 20G/30ML UDC PO SCH ×3 (05:46→22:23)
[2017-07-05] MEDS: ACETAMINOPHEN 650MG/20.3ML UDC PO PRN ×2 (06:32→14:02)
[2017-07-05 08:12] LABS: BG BASE EXCESS -2.1 mmol/L (-2.0-2.0); BG CARBOXYHEMOGLOBIN 0.3 % (0.5-1.5); BG DEOXYHEMOGLOBIN 4.8 % (0.0-5.0); BG FRACTION INSPIRED OXYGEN 35; BG HCO3 ACT 20.6 mmol/L (22.0-26.0); BG METHEMOGLOBIN 0.4 % (0.0-1.5); BG OXYGEN SATURATION 95.2 % (92.0-98.5); BG OXYHEMOGLOBIN 94.5 % (94.0-97.0); BG PCO2 28.1 mmHg (35.0-45.0); BG PH 7.482 (7.350-7.450); BG PO2 74.9 mmHg (75.0-100.0); BG SAMPLE SITE RIGHT BRACHIAL; BG TIDAL VOLUME(mL) 500 mL; BG TOTAL HEMOGLOBIN 9.7 g/dL (12.0-18.0); BG VENT MODE VENT - A/C; BG VENT RATE 12 set
[2017-07-05] MEDS: ALLOPURINOL 100 MG TABLET PO SCH (08:47)
[2017-07-05] MEDS: ASCORBIC ACID 500 MG TABLET PO SCH ×2 (08:47→20:36)
[2017-07-05] MEDS: FUROSEMIDE 40MG/4ML VIAL IVP SCH (08:47)
[2017-07-05] MEDS: PANTOPRAZOLE SODIUM 40 MG/VIAL IV SCH ×2 (08:47→20:37)
[2017-07-05] MEDS: METRONIDAZOLE 500MG TABLET PO SCH ×2 (08:47→20:36)
[2017-07-05] MEDS: RIFAXIMIN 550 MG TABLET PO SCH ×2 (08:47→20:47)
[2017-07-05 10:54] LABS: PLATELET ESTIMATE NORMAL
[2017-07-05] MEDS ORDERED: POTASSIUM PHOS,M-BASIC-D-BASIC 30 MMOL in DEXT 5% WATER 500 ML IV NR (11:00)
[2017-07-05] MEDS: ENOXAPARIN 40MG/0.4ML SYR SUBCUT SCH (11:38)
[2017-07-05] MEDS: INSULIN DETEMIR UD 100 UNITS/ML SYR SUBCUT SCH ×2 (12:25→22:24)
[2017-07-05] MEDS: IPRATROPIUM/ALBUTEROL 0.5-3(2.5)MG/3ML NEB HHN PRN ×2 (12:49→16:29)
[2017-07-05] MEDS: MORPHINE SULFATE 2 MG/ML CPJ (NOT FOR IM USE) IV PRN (20:35)
[2017-07-06] VITALS (44 sets, daily range): BP systolic 90–154; BP diastolic 46–88
[2017-07-06] MEDS: IPRATROPIUM/ALBUTEROL 0.5-3(2.5)MG/3ML NEB HHN SCH ×3 (00:39→15:53)
[2017-07-06] MEDS: ACETYLCYSTEINE 200MG/ML 20% VIAL 4ML INH SCH ×3 (00:40→15:53)
[2017-07-06] MEDS: METOCLOPRAMIDE HCL 10MG/2ML VIAL IV SCH ×4 (05:41→23:55)
[2017-07-06] MEDS: LACTULOSE 20G/30ML UDC PO SCH ×2 (05:42→17:19)
[2017-07-06] MEDS: INSULIN LISPRO 100 UNITS/ML SUBCUT SCH ×4 (05:51→23:56)
[2017-07-06 05:54] LABS: HEMATOCRIT. 26.6 % (42.0-52.0); HEMOGLOBIN. 8.6 g/dL (14.0-18.0); MEAN CORPUSCULAR HEMOGLOBIN 32.7 pg (28.0-32.0); MEAN CORPUSCULAR VOLUME 101.3 fL (80.0-94.0); MEAN PLATELET VOLUME 11.1 fl (7.4-10.4); PLATELET 201 x1000/uL (130-400); RED BLOOD CELL COUNT 2.62 mill/uL (4.7-6.1); RED CELL DISTRIBUTION WIDTH 18.3 % (11.6-14.6)
[2017-07-06] MEDS: BLOOD SUGAR DIAGNOSTIC STRIP TEST SCH ×4 (06:23→23:56)
[2017-07-06 06:39] LABS: CHLORIDE 114 mEq/L (98-107)
[2017-07-06 06:48] LABS: CARBON DIOXIDE 23 mEq/L (21-32); PHOSPHORUS 2.5 mg/dL (2.5-4.9)
[2017-07-06 08:06] LABS: PLATELET ESTIMATE NORMAL
[2017-07-06] MEDS: PANTOPRAZOLE SODIUM 40 MG/VIAL IV SCH ×2 (08:51→20:57)
[2017-07-06] MEDS: ASCORBIC ACID 500 MG TABLET PO SCH ×2 (08:51→20:57)
[2017-07-06] MEDS: RIFAXIMIN 550 MG TABLET PO SCH (08:51)
[2017-07-06] MEDS: METRONIDAZOLE 500MG TABLET PO SCH (08:51)
[2017-07-06] MEDS: ALLOPURINOL 100 MG TABLET PO SCH (08:51)
[2017-07-06] MEDS: CEFAZOLIN 2,000 MG in DEXT 5% WATER 100 ML IV SCH ×3 (08:52→23:56)
[2017-07-06] MEDS: INSULIN DETEMIR UD 100 UNITS/ML SYR SUBCUT SCH ×2 (09:53→20:59)
[2017-07-06 10:55] LABS: BG BASE EXCESS 1.9 mmol/L (-2.0-2.0); BG CARBOXYHEMOGLOBIN 0.3 % (0.5-1.5); BG DEOXYHEMOGLOBIN 4.4 % (0.0-5.0); BG FRACTION INSPIRED OXYGEN 35; BG HCO3 ACT 24.6 mmol/L (22.0-26.0); BG METHEMOGLOBIN 0.2 % (0.0-1.5); BG OXYGEN SATURATION 95.6 % (92.0-98.5); BG OXYHEMOGLOBIN 95.1 % (94.0-97.0); BG PCO2 31.1 mmHg (35.0-45.0); BG PH 7.516 (7.350-7.450); BG PO2 75.4 mmHg (75.0-100.0); BG PRESSURE SUPPORT 8; BG SAMPLE SITE LEFT BRACHIAL; BG TOTAL HEMOGLOBIN 9.3 g/dL (12.0-18.0); BG VENT MODE VENT - CPAP
[2017-07-06] MEDS: IPRATROPIUM/ALBUTEROL 0.5-3(2.5)MG/3ML NEB HHN PRN (12:36)
[2017-07-06] MEDS: ENOXAPARIN 40MG/0.4ML SYR SUBCUT SCH (12:39)
[2017-07-07] VITALS (55 sets, daily range): BP systolic 83–117; BP diastolic 45–76
[2017-07-07] MEDS: ACETYLCYSTEINE 200MG/ML 20% VIAL 4ML INH SCH ×4 (00:23→16:14)
[2017-07-07] MEDS: IPRATROPIUM/ALBUTEROL 0.5-3(2.5)MG/3ML NEB HHN SCH ×4 (00:24→19:59)
[2017-07-07] MEDS: METOCLOPRAMIDE HCL 10MG/2ML VIAL IV SCH (05:57)
[2017-07-07] MEDS: BLOOD SUGAR DIAGNOSTIC STRIP TEST SCH ×3 (05:57→18:17)
[2017-07-07] MEDS: INSULIN LISPRO 100 UNITS/ML SUBCUT SCH ×3 (05:57→18:00)
[2017-07-07 06:00] LABS: HEMATOCRIT. 27.1 % (42.0-52.0); INR 1.4; MEAN CORPUSCULAR HEMOGLOBIN 33.4 pg (28.0-32.0); MEAN CORPUSCULAR VOLUME 100.8 fL (80.0-94.0); MEAN PLATELET VOLUME 11.1 fl (7.4-10.4); PARTIAL THROMBOPLASTIN TIME 27.3 sec (23.4-31.0); PLATELET 222 x1000/uL (130-400); PROTHROMBIN TIME 14.7 sec (9.4-11.6); RED BLOOD CELL COUNT 2.69 mill/uL (4.7-6.1); RED CELL DISTRIBUTION WIDTH 18.3 % (11.6-14.6)
[2017-07-07 06:04] LABS: CHLORIDE 115 mEq/L (98-107)
[2017-07-07 06:12] LABS: CARBON DIOXIDE 27 mEq/L (21-32); PHOSPHORUS 3.3 mg/dL (2.5-4.9)
[2017-07-07 06:31] LABS: AMMONIA < 25 uMol/L (<32)
[2017-07-07] MEDS: CEFAZOLIN 2,000 MG in DEXT 5% WATER 100 ML IV SCH ×2 (07:23→15:12)
[2017-07-07] MEDS ORDERED: LIDOCAINE HCL 1% 20ML VIAL (Pyxis) INJ ONE (08:45)
[2017-07-07] MEDS ORDERED: SODIUM BICARBONATE 4% (2.4MEQ) 5ML VIAL IV ONE (08:46)
[2017-07-07] MEDS: LACTULOSE 20G/30ML UDC PO SCH (09:58)
[2017-07-07] MEDS: PANTOPRAZOLE SODIUM 40 MG/VIAL IV SCH ×2 (09:58→21:38)
[2017-07-07] MEDS: ASCORBIC ACID 500 MG TABLET PO SCH ×2 (09:59→21:38)
[2017-07-07] MEDS: ALLOPURINOL 100 MG TABLET PO SCH (09:59)
[2017-07-07] MEDS: INSULIN DETEMIR UD 100 UNITS/ML SYR SUBCUT SCH (10:00)
[2017-07-07 10:39] LABS: PLATELET ESTIMATE NORMAL
[2017-07-07 10:55] LABS: BG BASE EXCESS 2.2 mmol/L (-2.0-2.0); BG CARBOXYHEMOGLOBIN 0.3 % (0.5-1.5); BG DEOXYHEMOGLOBIN 11.1 % (0.0-5.0); BG FRACTION INSPIRED OXYGEN 36; BG HCO3 ACT 24.8 mmol/L (22.0-26.0); BG METHEMOGLOBIN 0.2 % (0.0-1.5); BG OXYGEN SATURATION 88.8 % (92.0-98.5); BG OXYHEMOGLOBIN 88.4 % (94.0-97.0); BG PCO2 31.3 mmHg (35.0-45.0); BG PH 7.517 (7.350-7.450); BG PO2 54.7 mmHg (75.0-100.0); BG SAMPLE SITE RIGHT RADIAL; BG TOTAL HEMOGLOBIN 9.6 g/dL (12.0-18.0); BG VENT MODE NASAL CANNULA
[2017-07-07] MEDS: ENOXAPARIN 40MG/0.4ML SYR SUBCUT SCH (12:44)
[2017-07-07] MEDS ORDERED: ALBUMIN HUMAN 25GM/100ML (25%) IV SCH ×2 (14:00→23:30)
[2017-07-07] MEDS ORDERED: SODIUM CHLORIDE 0.9% 500 ML IV SCH (23:25)
[2017-07-08] VITALS (30 sets, daily range): BP systolic 82–128; BP diastolic 46–81
[2017-07-08] MEDS: CEFAZOLIN 2,000 MG in DEXT 5% WATER 100 ML IV SCH ×4 (00:11→23:43)
[2017-07-08] MEDS: INSULIN DETEMIR UD 100 UNITS/ML SYR SUBCUT SCH ×4 (00:21→23:58)
[2017-07-08] MEDS: IPRATROPIUM/ALBUTEROL 0.5-3(2.5)MG/3ML NEB HHN SCH ×4 (00:32→16:57)
[2017-07-08] MEDS: ACETYLCYSTEINE 200MG/ML 20% VIAL 4ML INH SCH ×2 (00:32→09:28)
[2017-07-08 05:51] LABS: BASOPHILS % 1.3 % (0.0-2.0); EOSINOPHILS % 0.6 % (0.0-5.0); HEMATOCRIT. 24.5 % (42.0-52.0); LYMPHOCYTES % 8.7 % (20.0-50.0); MEAN CORPUSCULAR HEMOGLOBIN 33.2 pg (28.0-32.0); MEAN CORPUSCULAR VOLUME 102.1 fL (80.0-94.0); MEAN PLATELET VOLUME 11.2 fl (7.4-10.4); MONOCYTES % 5.1 % (2.0-8.0); NEUTROPHILS % 84.3 % (40.0-76.0); PLATELET 174 x1000/uL (130-400); RED CELL DISTRIBUTION WIDTH 17.9 % (11.6-14.6)
[2017-07-08] MEDS: BLOOD SUGAR DIAGNOSTIC STRIP TEST SCH ×5 (06:00→23:24)
[2017-07-08] MEDS: INSULIN LISPRO 100 UNITS/ML SUBCUT SCH ×6 (06:00→23:43)
[2017-07-08 06:13] LABS: CARBON DIOXIDE 24 mEq/L (21-32); CHLORIDE 111 mEq/L (98-107); PHOSPHORUS 2.9 mg/dL (2.5-4.9)
[2017-07-08 06:17] LABS: AMMONIA < 25 uMol/L (<32)
[2017-07-08 08:31] LABS: BG BASE EXCESS 0.8 mmol/L (-2.0-2.0); BG CARBOXYHEMOGLOBIN 0.2 % (0.5-1.5); BG DEOXYHEMOGLOBIN 8.2 % (0.0-5.0); BG FRACTION INSPIRED OXYGEN 28; BG HCO3 ACT 23.5 mmol/L (22.0-26.0); BG METHEMOGLOBIN 0.5 % (0.0-1.5); BG OXYGEN SATURATION 91.7 % (92.0-98.5); BG OXYHEMOGLOBIN 91.1 % (94.0-97.0); BG PCO2 30.3 mmHg (35.0-45.0); BG PH 7.508 (7.350-7.450); BG PO2 59.4 mmHg (75.0-100.0); BG SAMPLE SITE RIGHT RADIAL; BG TOTAL HEMOGLOBIN 8.8 g/dL (12.0-18.0); BG VENT MODE NASAL CANNULA
[2017-07-08] MEDS ORDERED: POTASSIUM CHLORIDE 20MEQ TABLET SR PO NR ×2 (09:00→14:00)
[2017-07-08] MEDS: ALLOPURINOL 100 MG TABLET PO SCH (10:13)
[2017-07-08] MEDS: PANTOPRAZOLE SODIUM 40 MG/VIAL IV SCH ×2 (10:13→21:43)
[2017-07-08] MEDS: ASCORBIC ACID 500 MG TABLET PO SCH ×2 (10:14→21:42)
[2017-07-08] MEDS ORDERED: INSULIN DETEMIR UD 100 UNITS/ML SYR SUBCUT SCH (11:00)
[2017-07-08] MEDS: ENOXAPARIN 40MG/0.4ML SYR SUBCUT SCH (11:55)
[2017-07-08] MEDS ORDERED: PNEUMOCOCCAL 23-VAL P-SAC VAC 0.5 ML IM ONE (17:00)
[2017-07-08] MEDS ORDERED: INFLUENZA VIRUS VACCINE 0.5ML SYR IM ONE (17:00)
[2017-07-08] MEDS: FERROUS GLUCONATE 324MG TABLET PO SCH (17:31)
[2017-07-08 18:03] LABS: AMMONIA < 25 uMol/L (<32)
[2017-07-09] VITALS (14 sets, daily range): BP systolic 101–122; BP diastolic 63–80
[2017-07-09] MEDS: IPRATROPIUM/ALBUTEROL 0.5-3(2.5)MG/3ML NEB HHN SCH ×3 (00:17→16:46)
[2017-07-09 05:39] LABS: INR 1.4; PARTIAL THROMBOPLASTIN TIME 29.3 sec (23.4-31.0); PROTHROMBIN TIME 14.5 sec (9.4-11.6)
[2017-07-09] MEDS: BLOOD SUGAR DIAGNOSTIC STRIP TEST SCH ×4 (05:42→23:58)
[2017-07-09 05:49] LABS: AMMONIA < 25 uMol/L (<32)
[2017-07-09 06:27] LABS: BASOPHILS % 1.1 % (0.0-2.0); EOSINOPHILS % 0.8 % (0.0-5.0); HEMATOCRIT 26.1 % (42.0-52.0); HEMATOCRIT. 26.1 % (42.0-52.0); HEMOGLOBIN 8.8 g/dL (14.0-18.0); HEMOGLOBIN. 8.8 g/dL (14.0-18.0); LYMPHOCYTES % 9.3 % (20.0-50.0); MEAN CORPUSCULAR HEMOGLOBIN 34.7 pg (28.0-32.0); MEAN CORPUSCULAR VOLUME 102.7 fL (80.0-94.0); MEAN PLATELET VOLUME 11.3 fl (7.4-10.4); MONOCYTES % 6.7 % (2.0-8.0); NEUTROPHILS % 82.1 % (40.0-76.0); PLATELET 183 x1000/uL (130-400); RED BLOOD CELL COUNT 2.54 mill/uL (4.7-6.1)
[2017-07-09 06:47] LABS: CARBON DIOXIDE 25 mEq/L (21-32); CHLORIDE 107 mEq/L (98-107); PHOSPHORUS 2.2 mg/dL (2.5-4.9)
[2017-07-09] MEDS: ALLOPURINOL 100 MG TABLET PO SCH (08:55)
[2017-07-09] MEDS: ASCORBIC ACID 500 MG TABLET PO SCH ×2 (08:55→21:19)
[2017-07-09] MEDS: CEFAZOLIN 2,000 MG in DEXT 5% WATER 100 ML IV SCH ×3 (08:55→23:54)
[2017-07-09] MEDS: PANTOPRAZOLE SODIUM 40 MG/VIAL IV SCH ×2 (08:56→21:18)
[2017-07-09] MEDS: FERROUS GLUCONATE 324MG TABLET PO SCH ×2 (08:57→18:17)
[2017-07-09] MEDS: POTASSIUM-SODIUM PHOSPHATE POWDER PACKET PO SCH ×2 (09:00→17:11)
[2017-07-09] MEDS: INSULIN DETEMIR UD 100 UNITS/ML SYR SUBCUT SCH ×2 (10:29→21:32)
[2017-07-09] MEDS: ENOXAPARIN 40MG/0.4ML SYR SUBCUT SCH (10:29)
[2017-07-09] MEDS: INSULIN LISPRO 100 UNITS/ML SUBCUT SCH ×3 (12:12→23:58)
[2017-07-09 12:40] LABS: INR 1.5; PROTHROMBIN TIME 15.1 sec (9.4-11.6)
[2017-07-09 18:54] LABS: T4 FREE 1.16 ng/dL (0.76-1.46)
[2017-07-09 19:16] LABS: VITAMIN B12 SERUM > 2000.0 pg/mL (211-911)
[2017-07-09 20:04] LABS: AMMONIA 50 uMol/L (<32)
[2017-07-10] VITALS (10 sets, daily range): BP systolic 92–121; BP diastolic 55–75
[2017-07-10] MEDS: IPRATROPIUM/ALBUTEROL 0.5-3(2.5)MG/3ML NEB HHN SCH ×3 (00:02→17:29)
[2017-07-10] MEDS: INSULIN LISPRO 100 UNITS/ML SUBCUT SCH ×3 (06:00→17:42)
[2017-07-10 06:39] LABS: AMMONIA < 10 uMol/L (<32)
[2017-07-10] MEDS: BLOOD SUGAR DIAGNOSTIC STRIP TEST SCH ×3 (06:49→17:36)
[2017-07-10 06:50] LABS: CARBON DIOXIDE 25 mEq/L (21-32); CHLORIDE 105 mEq/L (98-107); PHOSPHORUS 2.9 mg/dL (2.5-4.9)
[2017-07-10] MEDS: FERROUS GLUCONATE 324MG TABLET PO SCH ×2 (08:00→17:37)
[2017-07-10] MEDS: POTASSIUM-SODIUM PHOSPHATE POWDER PACKET PO SCH (08:13)
[2017-07-10] MEDS: ALLOPURINOL 100 MG TABLET PO SCH (08:13)
[2017-07-10] MEDS: ASCORBIC ACID 500 MG TABLET PO SCH ×2 (08:13→21:31)
[2017-07-10] MEDS: SPIRONOLACTONE 25MG TABLET PO SCH (09:00)
[2017-07-10] MEDS: FUROSEMIDE 20MG TABLET PO SCH (09:00)
[2017-07-10] MEDS: CEFAZOLIN 2,000 MG in DEXT 5% WATER 100 ML IV SCH ×2 (09:26→16:17)
[2017-07-10] MEDS: PANTOPRAZOLE SODIUM 40 MG/VIAL IV SCH ×2 (09:26→21:31)
[2017-07-10] MEDS: INSULIN DETEMIR UD 100 UNITS/ML SYR SUBCUT SCH ×2 (10:00→21:44)
[2017-07-10] MEDS: ALBUMIN HUMAN 25GM/100ML (25%) IV SCH ×2 (10:19→21:31)
[2017-07-10] MEDS: ENOXAPARIN 40MG/0.4ML SYR SUBCUT SCH (10:35)
[2017-07-10] MEDS ORDERED: LIDOCAINE HCL 1% 20ML VIAL (Pyxis) INJ ONE (13:03)
[2017-07-10] MEDS ORDERED: SODIUM BICARBONATE 4% (2.4MEQ) 5ML VIAL IV ONE (13:04)
[2017-07-10] MEDS ORDERED: ALD50 PO (15:00)
[2017-07-11] VITALS (12 sets, daily range): BP systolic 92–124; BP diastolic 56–68
[2017-07-11] MEDS: CEFAZOLIN 2,000 MG in DEXT 5% WATER 100 ML IV SCH (00:19)
[2017-07-11] MEDS: INSULIN LISPRO 100 UNITS/ML SUBCUT SCH ×5 (00:23→21:46)
[2017-07-11] MEDS: BLOOD SUGAR DIAGNOSTIC STRIP TEST SCH ×5 (00:23→20:34)
[2017-07-11] MEDS: IPRATROPIUM/ALBUTEROL 0.5-3(2.5)MG/3ML NEB HHN SCH ×3 (00:38→09:22)
[2017-07-11] MEDS: ALBUMIN HUMAN 25GM/100ML (25%) IV SCH (01:42)
[2017-07-11 06:54] LABS: BASOPHILS % 0.9 % (0.0-2.0); EOSINOPHILS % 1.5 % (0.0-5.0); HEMATOCRIT. 25.4 % (42.0-52.0); HEMOGLOBIN. 8.4 g/dL (14.0-18.0); LYMPHOCYTES % 11.4 % (20.0-50.0); MEAN CORPUSCULAR HEMOGLOBIN 34.2 pg (28.0-32.0); MEAN CORPUSCULAR VOLUME 103.4 fL (80.0-94.0); MEAN PLATELET VOLUME 10.7 fl (7.4-10.4); MONOCYTES % 8.8 % (2.0-8.0); NEUTROPHILS % 77.4 % (40.0-76.0); PLATELET 149 x1000/uL (130-400); RED BLOOD CELL COUNT 2.46 mill/uL (4.7-6.1); RED CELL DISTRIBUTION WIDTH 20.3 % (11.6-14.6)
[2017-07-11 07:37] LABS: CARBON DIOXIDE 22 mEq/L (21-32); CHLORIDE 107 mEq/L (98-107)
[2017-07-11] MEDS: FUROSEMIDE 20MG TABLET PO SCH (08:16)
[2017-07-11] MEDS: ASCORBIC ACID 500 MG TABLET PO SCH ×2 (08:16→20:28)
[2017-07-11] MEDS: FERROUS GLUCONATE 324MG TABLET PO SCH ×2 (08:16→17:45)
[2017-07-11] MEDS: PANTOPRAZOLE SODIUM 40 MG/VIAL IV SCH ×2 (08:16→20:28)
[2017-07-11] MEDS: ALLOPURINOL 100 MG TABLET PO SCH (08:17)
[2017-07-11] MEDS: SPIRONOLACTONE 25MG TABLET PO SCH ×2 (08:17→17:45)
[2017-07-11] MEDS: ENOXAPARIN 40MG/0.4ML SYR SUBCUT SCH (11:49)
[2017-07-11] MEDS: INSULIN DETEMIR UD 100 UNITS/ML SYR SUBCUT SCH ×2 (11:57→21:47)
[2017-07-12] VITALS: BP 101/66
[2017-07-12 02:00] VITALS: BP 103/62
[2017-07-12 04:00] VITALS: BP 110/69
[2017-07-12 06:00] VITALS: BP 100/45
[2017-07-12] MEDS: SPIRONOLACTONE 25MG TABLET PO SCH (06:39)
[2017-07-12] MEDS: BLOOD SUGAR DIAGNOSTIC STRIP TEST SCH ×3 (07:30→21:00)
[2017-07-12 08:00] VITALS: BP 118/68
[2017-07-12] MEDS: INSULIN LISPRO 100 UNITS/ML SUBCUT SCH ×4 (08:00→22:40)
[2017-07-12] MEDS: FUROSEMIDE 20MG TABLET PO SCH (09:20)
[2017-07-12] MEDS: ASCORBIC ACID 500 MG TABLET PO SCH ×2 (09:20→22:39)
[2017-07-12] MEDS: PANTOPRAZOLE SODIUM 40 MG/VIAL IV SCH ×2 (09:20→22:39)
[2017-07-12] MEDS: ALLOPURINOL 100 MG TABLET PO SCH (09:21)
[2017-07-12] MEDS: FERROUS GLUCONATE 324MG TABLET PO SCH ×2 (09:21→17:55)
[2017-07-12] MEDS: ENOXAPARIN 40MG/0.4ML SYR SUBCUT SCH (10:10)
[2017-07-12] MEDS: INSULIN DETEMIR UD 100 UNITS/ML SYR SUBCUT SCH ×2 (10:11→22:41)
[2017-07-12] MEDS: IPRATROPIUM/ALBUTEROL 0.5-3(2.5)MG/3ML NEB HHN SCH (14:00)
[2017-07-12] MEDS: CEFAZOLIN 2,000 MG in DEXT 5% WATER 100 ML IV SCH ×2 (15:48→22:39)
[2017-07-12 20:00] VITALS: BP 104/58
[2017-07-13] VITALS: BP 92/52
[2017-07-13] MEDS: IPRATROPIUM/ALBUTEROL 0.5-3(2.5)MG/3ML NEB HHN SCH ×4 (00:52→23:55)
[2017-07-13 04:00] VITALS: BP 106/61
[2017-07-13] MEDS: INSULIN LISPRO 100 UNITS/ML SUBCUT SCH ×4 (06:30→20:51)
[2017-07-13] MEDS: BLOOD SUGAR DIAGNOSTIC STRIP TEST SCH ×4 (06:30→20:37)
[2017-07-13] MEDS: CEFAZOLIN 2,000 MG in DEXT 5% WATER 100 ML IV SCH ×3 (06:34→21:25)
[2017-07-13 08:00] VITALS: BP 122/74
[2017-07-13] MEDS: ASCORBIC ACID 500 MG TABLET PO SCH ×2 (08:38→20:37)
[2017-07-13] MEDS: FERROUS GLUCONATE 324MG TABLET PO SCH ×2 (08:38→16:45)
[2017-07-13] MEDS: ALLOPURINOL 100 MG TABLET PO SCH (08:38)
[2017-07-13] MEDS: PANTOPRAZOLE SODIUM 40 MG/VIAL IV SCH ×2 (08:38→20:37)
[2017-07-13] MEDS: FUROSEMIDE 20MG TABLET PO SCH (08:38)
[2017-07-13] MEDS: INSULIN DETEMIR UD 100 UNITS/ML SYR SUBCUT SCH ×2 (11:04→21:38)
[2017-07-13] MEDS: ENOXAPARIN 40MG/0.4ML SYR SUBCUT SCH (11:12)
[2017-07-13 12:00] VITALS: BP 101/65
[2017-07-13 13:50] LABS: AMMONIA 34 uMol/L (<32)
[2017-07-13] MEDS ORDERED: LACTULOSE 20G/30ML UDC PO SCH (15:15)
[2017-07-13 16:00] VITALS: BP 91/50
[2017-07-13 20:00] VITALS: BP 108/68
[2017-07-14] VITALS: BP 101/54
[2017-07-14 04:00] VITALS: BP 107/59
[2017-07-14] MEDS: CEFAZOLIN 2,000 MG in DEXT 5% WATER 100 ML IV SCH ×3 (06:20→22:10)
[2017-07-14] MEDS: BLOOD SUGAR DIAGNOSTIC STRIP TEST SCH ×4 (06:26→21:17)
[2017-07-14] MEDS: INSULIN LISPRO 100 UNITS/ML SUBCUT SCH ×4 (06:26→21:19)
[2017-07-14 07:12] LABS: AMMONIA 29 uMol/L (<32)
[2017-07-14] MEDS: SPIRONOLACTONE 25MG TABLET PO SCH ×3 (07:15→18:26)
[2017-07-14 07:22] LABS: BASOPHILS % 0.5 % (0.0-2.0); EOSINOPHILS % 1.8 % (0.0-5.0); HEMATOCRIT. 28.7 % (42.0-52.0); HEMOGLOBIN. 9.5 g/dL (14.0-18.0); LYMPHOCYTES % 9.2 % (20.0-50.0); MEAN CORPUSCULAR HEMOGLOBIN 34.2 pg (28.0-32.0); MEAN CORPUSCULAR VOLUME 103.5 fL (80.0-94.0); MEAN PLATELET VOLUME 11.7 fl (7.4-10.4); NEUTROPHILS % 81.5 % (40.0-76.0); PLATELET 153 x1000/uL (130-400); RED BLOOD CELL COUNT 2.77 mill/uL (4.7-6.1); RED CELL DISTRIBUTION WIDTH 19.8 % (11.6-14.6)
[2017-07-14 08:00] VITALS: BP 93/65
[2017-07-14 08:20] LABS: CHLORIDE 108 mEq/L (98-107)
[2017-07-14 08:23] LABS: CARBON DIOXIDE 21 mEq/L (21-32)
[2017-07-14] MEDS: IPRATROPIUM/ALBUTEROL 0.5-3(2.5)MG/3ML NEB HHN SCH ×3 (09:42→23:14)
[2017-07-14] MEDS: ALLOPURINOL 100 MG TABLET PO SCH (10:00)
[2017-07-14] MEDS: FERROUS GLUCONATE 324MG TABLET PO SCH ×2 (10:01→18:27)
[2017-07-14] MEDS: FUROSEMIDE 20MG TABLET PO SCH (10:03)
[2017-07-14] MEDS: PANTOPRAZOLE SODIUM 40 MG/VIAL IV SCH ×2 (10:03→21:17)
[2017-07-14] MEDS: ASCORBIC ACID 500 MG TABLET PO SCH ×2 (10:03→21:17)
[2017-07-14] MEDS: LACTULOSE 20G/30ML UDC PO SCH (10:04)
[2017-07-14] MEDS: ENOXAPARIN 40MG/0.4ML SYR SUBCUT SCH (10:08)
[2017-07-14] MEDS: INSULIN DETEMIR UD 100 UNITS/ML SYR SUBCUT SCH ×2 (10:12→22:21)
[2017-07-14 12:00] VITALS: BP 106/60
[2017-07-14 16:00] VITALS: BP 118/72
[2017-07-14 20:38] VITALS: BP 105/63
[2017-07-15] VITALS: BP 110/64
[2017-07-15 04:00] VITALS: BP 104/56
[2017-07-15] MEDS ORDERED: SODIUM CHLORIDE 0.9% IV SCH (05:00)
[2017-07-15] MEDS ORDERED: DAPTOMYCIN IV SCH (05:00)
[2017-07-15] MEDS ORDERED: SULFAMETHOXAZOLE/TRIMETHOPRIM 800/160MG TABLET PO SCH (06:00)
[2017-07-15] MEDS: BLOOD SUGAR DIAGNOSTIC STRIP TEST SCH (06:12)
[2017-07-15] MEDS: INSULIN LISPRO 100 UNITS/ML SUBCUT SCH (06:19)
[2017-07-15 08:00] VITALS: BP 114/67
[2017-07-15] MEDS: IPRATROPIUM/ALBUTEROL 0.5-3(2.5)MG/3ML NEB HHN SCH ×2 (08:04→08:10)
[2017-07-15] MEDS: PANTOPRAZOLE SODIUM 40 MG/VIAL IV SCH (09:53)
[2017-07-15] MEDS: ALLOPURINOL 100 MG TABLET PO SCH (09:54)
[2017-07-15] MEDS: ASCORBIC ACID 500 MG TABLET PO SCH (09:54)
[2017-07-15] MEDS: FERROUS GLUCONATE 324MG TABLET PO SCH (09:54)
[2017-07-15] MEDS: FUROSEMIDE 20MG TABLET PO SCH (10:00)
[2017-07-15] MEDS: SPIRONOLACTONE 25MG TABLET PO SCH (10:00)
[2017-07-15] MEDS: LACTULOSE 20G/30ML UDC PO SCH (10:00)
[2017-07-15] MEDS: INSULIN DETEMIR UD 100 UNITS/ML SYR SUBCUT SCH (10:01)
[2017-07-15 10:12] VITALS: BP 114/67
[2017-07-15] MEDS: ENOXAPARIN 40MG/0.4ML SYR SUBCUT SCH (10:19)
== END 2017-07-15 10:30 | disposition home or self-care (01) | DRG 870 ==
LOC: ER 05:02 → CVICU 06:02 → ENRESERV 07:03 → 5EST 07-08 18:30 → 5WST 07-12 10:30
PROVIDERS: ADMIT Internal Medicine; ATTEND Internal Medicine
PROC: 5A1955Z Respiratory Ventilation, Greater than 96 Consecutive Hours (ICD-10-PCS; principal; 2017-06-25)
PROC: 0BH17EZ Insertion of Endotracheal Airway into Trachea, Via Natural or Artificial Opening (ICD-10-PCS; 2017-06-25)
PROC: 02HV33Z Insertion of Infusion Device into Superior Vena Cava, Percutaneous Approach (ICD-10-PCS; 2017-06-25)
PROC: B548ZZA Ultrasonography of Superior Vena Cava, Guidance (ICD-10-PCS; 2017-06-25)
PROC: 5A09357 Assistance with Respiratory Ventilation, Less than 24 Consecutive Hours, Continuous Positive Airway Pressure (ICD-10-PCS; 2017-06-25)
PROC: 0W9G3ZX Drainage of Peritoneal Cavity, Percutaneous Approach, Diagnostic (ICD-10-PCS; 2017-07-07)
PROC: 0W9G3ZZ Drainage of Peritoneal Cavity, Percutaneous Approach (ICD-10-PCS; 2017-07-10)
DX: A41.01 Sepsis due to Methicillin susceptible Staphylococcus aureus (principal); J96.01 Acute respiratory failure with hypoxia; N17.0 Acute kidney failure with tubular necrosis; E43 Unspecified severe protein-calorie malnutrition; G92 Toxic encephalopathy; R65.21 Severe sepsis with septic shock; J15.211 Pneumonia due to Methicillin susceptible Staphylococcus aureus; K85.90 Acute pancreatitis without necrosis or infection, unspecified; D69.6 Thrombocytopenia, unspecified; K56.7 Ileus, unspecified; K92.2 Gastrointestinal hemorrhage, unspecified; E87.2 Acidosis; E87.1 Hypo-osmolality and hyponatremia; E87.0 Hyperosmolality and hypernatremia; E11.22 Type 2 diabetes mellitus with diabetic chronic kidney disease; E11.65 Type 2 diabetes mellitus with hyperglycemia; D53.9 Nutritional anemia, unspecified; K21.9 Gastro-esophageal reflux disease without esophagitis; D50.9 Iron deficiency anemia, unspecified; E78.00 Pure hypercholesterolemia, unspecified; E66.9 Obesity, unspecified; E78.1 Pure hyperglyceridemia; E83.39 Other disorders of phosphorus metabolism; E83.42 Hypomagnesemia; E87.5 Hyperkalemia; E87.6 Hypokalemia; G47.30 Sleep apnea, unspecified; I13.10 Hypertensive heart and chronic kidney disease without heart failure, with stage 1 through stage 4 chronic kidney disease, or unspecified chronic kidney disease; K70.31 Alcoholic cirrhosis of liver with ascites; F10.20 Alcohol dependence, uncomplicated; E87.8 Other disorders of electrolyte and fluid balance, not elsewhere classified; R26.9 Unspecified abnormalities of gait and mobility; M10.9 Gout, unspecified; N18.9 Chronic kidney disease, unspecified; R13.10 Dysphagia, unspecified; Z79.891 Long term (current) use of opiate analgesic; Z82.49 Family history of ischemic heart disease and other diseases of the circulatory system; Z86.73 Personal history of transient ischemic attack (TIA), and cerebral infarction without residual deficits; Z87.891 Personal history of nicotine dependence; Z68.23 Body mass index [BMI] 23.0-23.9, adult
CPT/HCPCS: 31500; 36415; 36569; 36600; 49083; 51702; 70450; 71010; 71250; 74000; 74176; 76700; 76705; 76770; 76937; 78580; 80048; 80053; 80061; 80076; 80202; 80305; 81001; 82040; 82140; 82247; 82248; 82270; 82375; 82378; 82550; 82553; 82607; 82728; 82746; 82805; 82962; 83036; 83540; 83550; 83605; 83615; 83690; 83735; 83880; 83935; 84100; 84300; 84439; 84443; 84478; 84481; 84484; 85025; 85027; 85379; 85610; 85730; 86480; 86635; 86677; 86705; 86709; 86803; 87040; 87070; 87077; 87086; 87186; 87205; 87340; 87804; 88108; 88312; 89050; 90686; 90732; 92610; 93005; 93306; 93970; 94002; 94003; 94640; 94660; 96365; 96375; 97110; 97116; 97162; 97166; 97530; 99291; A4216; A6261; C1725; C9113; J0330; J0690; J0878; J1644; J1650; J1815; J1940; J1956; J2060; J2250; J2270; J2370; J2405; J2543; J2704; J2765; J3010; J3370; J3475; J3480; J3490; J7030; J7040; J7042; J7050; J7060; J7070; J7608; J7620; P9047; Q9963; A4315